=== PATIENT | female | born 1990 | race Caucasian/White ===

== ENCOUNTER → 2022-10-12 08:17 | Outpatient (CLI) | payer OTHER, SELFPAY ==
--- NOTE | ~2022-10-12 | US_ITS ---
EXAMINATION: US OB /maternal detail DATE: 10/12/2022 09:11 INDICATION: anatomic survey. TECHNIQUE: Real-time ultrasound of the pelvis was performed. COMPARISON: None. FINDINGS: There is a single living fetus in breech presentation. The placenta is anterior. heart rate is 147 beats per minute (bpm). The amniotic fluid volume is subjectively normal. The following biometric data were obtained: Biparietal diameter (BPD): 4.4 cm; head circumference (HC): 17.0 cm; abdominal circumference (AC): 15 .3 cm; femur length (FL): 3.2 cm. These measurements are concordant. Estimated weight is 322 g +/- 50 g, which correlates with the 93rd percentile when 03/07/23 is u sed as estimated date of delivery. As single measurements, these parameters are each equal to the following estimated gestational ages: BPD: 19 weeks 3 days. HC: 19 weeks 4 days. AC: 20 weeks 3 days. FL: 19 weeks 6 days. estimated gestational age based solely on measurements from this exam is 19 weeks 6 days +/- 1 weeks 3 days. The cerebral ventricles, cerebellum, cisterna magna, nuchal fold, lip, and visualized portions of the spine are normal. The heart is normal. The diaphragm, stomach, kidneys, and bladder are normal. Ther e are two umbilical arteries to yield a 3-vessel cord. The cord insertion is normal. IMPRESSION: 1. Single living fetus in breech presentation. 2. Large for gestational age. Estimated weight is 322 g +/- 50 g, which correlates with the 93 rd percentile when 03/07/23 is used as estimated date of delivery. 3. Normal anatomic survey. Reviewed, dictated and finalized at location A. STIGATIONS DIRECTOR IMPRESSION: 1. Single living fetus in breech presentation. 2. Large for gestational age. Estimated weight is 322 g +/- 50 g, which correlates with the 93rd percentile when 03/07/23 is used as estimated date of d elivery. 3. Normal anatomic survey.
== END ==
PROVIDERS: PCP Obstetrics & Gynecology Gynecologic Oncology; Visit Provider Obstetrics & Gynecology Gynecologic Oncology
DX: Z36.9 Encounter for antenatal screening, unspecified (principal)
CPT/HCPCS: 76805

== ENCOUNTER 2025-01-30 14:55 | Emergency (ER) | payer OTHER, SELFPAY ==
[2025-01-30 15:07] VITALS: BP 143/98; PULSE 97; RESP 16; TEMP 36.7; O2SAT 100
--- NOTE | 2025-01-30 15:07 | ED_ITS ---
HPI - General Adult General Chief complaint: Nausea/Vomiting/Diarrhea Stated complaint: HEMORRHOID Time Seen by Provider: 01/30/25 15:16 Mode of arrival: ambulatory Limitations: no limitations History of Present Illness HPI narrative: 34-year-old female presents with concern for hemorroid. She reports she had a bout of constipation and since then has had a hemorrhoid. She reports it has gotten room worse and more painful. She reports she has tried witch Wendie pads and preparation H without relief. He has been taking stool softeners. MD complaint: Hemorrhoid Related Data Home Medications ?Medication ?Instructions ?Recorded ?Confirmed ?Last Taken ?Type bupropion HCl 150 mg 24 hr tablet, 450 mg PO DAILY 01/30/25 01/30/25 Unknown History extended release semaglutide (weight loss) 2.4 2.4 mg subcut WEEKLY 01/30/25 01/30/25 Unknown History mg/0.75 mL subcutaneous pen injector Allergies Allergy/AdvReac Type Severity Reaction Status Date / Time No Known Allergies Allergy Verified 01/30/25 15:04 Review of Systems Review of Systems: CONSTITUTIONAL: Denies malaise, chills, sweats, or fever. GASTROINTESTINAL: Reports hemorrhoid All systems reviewed & are unremarkable except as noted in HPI and below PMFSH Comments At time of signature, agree with nursing past medical, surgical, social and family history. There is no relevant family history pertinent to the presenting complaint Exam Narrative: GENERAL: Well-appearing, well-nourished, and in no acute distress. HEAD: Normocephalic, EYES: PERRLA ENT: Nares clear. Mucous membranes moist. NECK: Supple. CHEST: No respiratory distress. Speaks in full sentences. HEART: Regular rate and rhythm. N SKIN: Warm, dry, no visible rash. NEURO: Alert and oriented x3. PSYCH: Normal mood and affect GI: Rectal Exam: External hemorrhoid(s) present Course Course Emergency Course: Patient is aware of diagnosis, understands and agrees to treatment plan. Anticipatory guidance given. Patient agrees to follow-up as directed and is aware of reasons to seek care at the emergency department. Portions of this record may have been created with voice recognition software Level of Care: Express Care Visit Vital Signs Vital signs: Vital Signs Temperature 98.1 F 01/30/25 15:07 Pulse Rate 97 01/30/25 15:07 Respiratory Rate 16 01/30/25 15:07 Blood Pressure 143/98 H 01/30/25 15:07 Pulse Oximetry 100 01/30/25 15:07 Temperature 98.1 F 01/30/25 15:07 Pulse Rate 97 01/30/25 15:07 Respiratory Rate 16 01/30/25 15:07 Blood Pressure 143/98 H 01/30/25 15:07 Pulse Oximetry 100 01/30/25 15:07 Reviewed. Medical Decision Making MDM Narrative Medical decision making narrative: The patient was evaluated by myself in the [facility] care. History is obtained from patient who is an independent historian and physical exam was performed.? Available medical records were reviewed at this time. ? Exam findings show no acute concerns or changes; patient is non-toxic appearing and is in no distress. Patient is appropriate for outpatient treatment and follow-up. ? I have evaluated and discussed social determinants of health with the patient that could potentially impact subsequent diagnosis and treatment plans. ? Differential diagnosis and treatment plan were discussed with the patient. Patient agrees with discussion and after shared medical decision making agrees with plan of care. All questions were answered to the patient's satisfaction. Vital Signs Vital Signs: Vital Signs Temperature 98.1 F 01/30/25 15:07 Pulse Rate 97 01/30/25 15:07 Respiratory Rate 16 01/30/25 15:07 Blood Pressure 143/98 H 01/30/25 15:07 Pulse Oximetry 100 01/30/25 15:07 Temperature 98.1 F 01/30/25 15:07 Pulse Rate 97 01/30/25 15:07 Respiratory Rate 16 01/30/25 15:07 Blood Pressure 143/98 H 01/30/25 15:07 Pulse Oximetry 100 01/30/25 15:07 Critical Care Time Critical Care Time Critical Care Time: No Discharge Plan Discharge Clinical Impression: Acute hemorrhoid Patient Disposition: Home Condition: Stable Instructions: Hemorrhoids (ED) Additional Instructions: 1) Please follow-up with general surgery for further evaluation. 2) If you have any worsening of symptoms or any other urgent concerns please go to the ER. 3) Please take medications as prescribed and continue taking your home medications as usual. 4) Please read and follow information included in discharge instructions. Patient Language: Polish Prescriptions: New hydrocortisone acetate [Hemmorex-HC] 30 mg suppository 30 mg RECTAL BID PRN (Reason: hemorrhoids) Qty: 12 0RF Hemorrhoidal (phenyleph-cocoa) 0.25-88.44 % suppository 1 supp RECTAL QID Qty: 24 0RF docusate sodium [Colace] 100 mg capsule 100 mg PO DAILY Qty: 30 0RF tramadol 50 mg tablet 50 mg PO Q6H PRN (Reason: pain) Qty: 20 0RF No Action bupropion HCl 150 mg tablet extended release 24 hr 450 mg PO DAILY semaglutide (weight loss) 2.4 mg/0.75 mL pen injector 2.4 mg subcut WEEKLY Follow-up/Referrals: Christopher,[facility] [Other] Simi Orozco MD [Physician] - Time of Disposition: 15:21
== END 2025-01-30 15:29 | disposition home or self-care (01) ==
PROVIDERS: Emergency Provider Nurse Practitioner
DX: K64.9 Unspecified hemorrhoids (principal); Z79.899 Other long term (current) drug therapy
CPT/HCPCS: 99203; G0463